=== PATIENT | male | born 1995 | race Caucasian/White ===

== ENCOUNTER 2017-07-04 16:44 | Emergency (ER) | payer OTHER ==
--- NOTE | 2017-07-04 17:12 | EDM.PDOC ---
ED HPI GENERAL MEDICAL PROBLEM - General Chief Complaint: Neck Problem Stated Complaint: SLIPPED ON ICE, LEFT SIDE OF BODY PAIN Time Seen by Provider: 07/04/17 17:06 Source of Information: Reports: Patient History Limitations: Reports: No Limitations - History of Present Illness INITIAL COMMENTS - FREE TEXT/NARRATIVE: 22-year-old male injured in the workplace this morning sent to the ED for evaluation from occupational health clinic. Patient reports he works at [employer]. 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 One of the ties fell off the pile and he got out of the forklift pick it up and to replace it worked fell from any slipped on the ice. Feet went out from underneath him and he landed directly on the back of his head ,upper back, lower back and left shoulder. The 8 foot railroad tie he was handling fell on top of them and landed on his anterior chest. Able to push this off of top of him He laid there for a while as he was dazed and knocked the wind out of him. He did not lose consciousness. Subsequently he has developed increasing headache and left sided neck pain .Left shoulder pain localized more to the acromiocalvicular joint as well as diffuse mid and low back pain. He may sustain at work. He spent his noon hour break having a nap due to the development of a severe headache. He has taken ibuprofen 600 mg this morning and again at 2:00 today. No nausea or vomiting. Current headache is about 4 out of 10. He was thus sent to the ED for further evaluation and imaging studies. Onset: Today Onset Date: 07/04/17 Onset Time: 09:30 Duration: Hour(s): Location: Reports: Head, Neck, Chest (Some mild pain across his anterior sternum where the railroad tie landed on top of him.), Back (Upper mid and lower back), Upper Extremity, Left (Left lateral shoulder) Quality: Reports: Ache, Sharp (Mostly in his left side of his neck.), Stabbing Severity: Moderate Improves with: Reports: Rest Worsens with: Reports: Movement Context: Reports: Trauma (Slipped and fell on the ice while at work this morning.) Associated Symptoms: Reports: Chest Pain, Headaches, Malaise. Denies: Confusion , Cough, cough w sputum (Mild over the manubrial sternal joint), Diaphoresis, Fever/Chills, Loss of Appetite, Nausea/Vomiting, Rash, Seizure, Shortness of Breath, Syncope, Weakness Treatments [employer]: Reports: NSAIDS (Ibuprofen 600 mg at 10:00 and again at 2:00 today.) Left Neck Pain Score (Numeric/FACES): 7 - Related Data Allergies Allergy/AdvReac Type Severity Reaction Status Date / Time No Known Allergies Allergy Verified 07/04/17 16:58 Home Meds: Home Meds Diclofenac Sodium [Voltaren] 50 mg PO TIDMEALS #24 tab.ec 07/04/17 [Rx] Past Medical History - Past Health History Medical/Surgical History: Denies Medical/Surgical History Social & Family History - Tobacco Use Smoking Status *Q: Never Smoker Second Hand Smoke Exposure: No - Caffeine Use Caffeine Use: Reports: Coffee, Energy Drinks, Soda - Recreational Drug Use Recreational Drug Use: No Review of Systems - Review of Systems Review Of Systems: See Below Constitutional: Reports: No Symptoms Eyes: Reports: No Symptoms Ears: Reports: No Symptoms Nose: Reports: No Symptoms Mouth/Throat: Reports: No Symptoms Respiratory: Reports: No Symptoms Cardiovascular: Reports: No Symptoms GI/Abdominal: Reports: No Symptoms Genitourinary: Reports: No Symptoms Musculoskeletal: Reports: Neck Pain, Shoulder Pain (Left lateral shoulder pain) , Back Pain (Mid lower and low back.), Muscle Pain (Left deltoid area of the shoulder.). Denies: Arm Pain, Hand Pain, Leg Pain, Foot Pain, Joint Pain, Joint Swelling Skin: Reports: No Symptoms Neurological: Reports: No Symptoms, Headache. Denies: Confusion, Dizziness, Numbness, Paresthesia, Pre-Existing Deficit, Seizure, Syncope, Tingling, Tremors , Trouble Speaking, Difficulty Walking, Weakness, Change in Speech Psychiatric: Reports: No Symptoms ED EXAM, GENERAL - Physical Exam Exam: See Below Exam Limited By: No Limitations General Appearance: Alert, WD/WN, Mild Distress Eye Exam: Bilateral Eye: Normal Inspection, PERRL Ear Exam: Bilateral Ear: TM normal Throat/Mouth: Normal Inspection, Normal Lips, Normal Oropharynx, Other (No injury to his tongue. No dental trauma) Head: Other (Mildly tender left occipital scalp without palpable hematoma. There is no abrasion or open wound.) Neck: Normal Inspection, Limited Range of Motion, Tender Lateral (Marked tenderness and muscle spasm present along the left lateral paraspinal muscles. This travels from the base of his scalp to thoracic one vertebra. Very tender to touch throughout the facet joints. No tenderness in the midline. Range of motion is severely limited on looking to the right and loss of 10 flexion and 10 extension.). No: Supple, Non-Tender, Full Range of Motion, Lymphadenopathy (L), Lymphadenopathy (R) Respiratory/Chest: No Respiratory Distress, Lungs Clear, Normal Breath Sounds, No Accessory Muscle Use, Chest Non-Tender, Other. No: Decreased Breath Sounds, Crackles, Rales, Rhonchi, Wheezing Cardiovascular: Normal Peripheral Pulses (Very mild tenderness on firm palpation over the manubrial sternal joint only. No evidence clinically of a fracture.), Regular Rate, Rhythm, No Edema, No Gallop, No Murmur, No Rub Peripheral Pulses: 3+: Posterior Tibial (L), Posterior Tibial (R), Dorsalis Pedis (L), Dorsalis Pedis (R) GI/Abdominal: Normal Bowel Sounds, Soft, Non-Tender, No Organomegaly, No Abnormal Bruit, No Mass, Pelvis Stable Back Exam: Vertebral Tenderness (Tender throughout the lower 6 thoracic vertebra and particularly at the thoracolumbar junction. Mild tenderness on palpation of the spinous processes and the left sided). No: CVA Tenderness (L) , CVA Tenderness (R) Extremities: Normal Inspection, Normal Range of Motion, Non-Tender, No Pedal Edema, Other (No injuries to the wrists or elbows.) Neurological: Alert, Oriented, CN II-XII Intact, Normal Cognition, Normal Gait, No Motor/Sensory Deficits Psychiatric: Normal Affect, Normal Mood Skin Exam: Warm, Dry, Intact, Normal Color, No Rash Course - Vital Signs Last Recorded V/S: Last Vital Signs Temp 36.9 C 07/04/17 16:53 Pulse 58 L 07/04/17 16:53 Resp 18 07/04/17 16:53 BP 118/64 07/04/17 16:53 Pulse Ox 97 07/04/17 16:53 - Orders/Labs/Meds Orders: Active Orders 24 hr Category Date Time Status Lumbar Spine 2 or 3V [CR] Stat Exams 07/04/17 17:11 Taken Shoulder Comp Lt [CR] Stat Exams 07/04/17 17:09 Taken Thoracic Spine 2V [CR] Stat Exams 07/04/17 17:10 Taken Labs: Laboratory Tests 07/04/17 Range/Units 17:10 Urine Color Yellow (Yellow) Urine Appearance Clear (Clear) Urine pH 6.0 (5.0-8.0) Ur Specific [place] > or = 1.030 (1.005-1.030) Urine Protein Negative (Negative) Urine Glucose (UA) Negative (Negative) Urine Ketones Negative (Negative) Urine Occult Blood Negative (Negative) Urine Nitrite Negative (Negative) Urine Bilirubin Negative (Negative) Urine Urobilinogen 0.2 (0.2-1.0) Ur Leukocyte Esterase Negative (Negative) Urine RBC Not seen (0-5) /hpf Urine WBC 0-5 (0-5) /hpf Ur Epithelial Cells 0-5 (0-5) /hpf Urine Bacteria Not seen (FEW) /hpf Urine Mucus Not seen (FEW) /hpf - Radiology Interpretation Free Text/Narrative:: 22-year-old male's seen through the ED after being injured in the workplace this morning. He reports he was alone and driving the [employer] with a pellet of 8 foot railroad ties on it. He was going to stack and on top of 2 other stacks when one of the railroad ties fell off. He got off the forklift to pick this time back up and put it where prolonged when he slipped on the ice. His feet went out from underneath him and he fell directly on his back and striking the occipital aspect of his head on the pavement. No loss of consciousness occurred but he was deathly dazed and knocked the wind out of him. The railroad tie came down across his anterior chest and he was able to push this off once he regained his weights. He did do manual work the rest of the day but minimized it. He is suffering from a headache which was quite bad this morning but improved at this time currently 4 out of 10. He has taken ibuprofen twice so far today. Since the time of injury his left neck is become increasingly painful as his left shoulder particularly over the before meals joint and deltoid musculature. Also pain has increased in his mid lower back particularly at the thoracolumbar junction and throughout the lumbar spine. Therefore imaging studies of his head neck left shoulder thoracic and lumbar spine will be carried out. I do not anticipate any fractures although his neck is of some concern is there is marked paraspinal muscle spasm on the left side. - Re-Assessments/Exams Free Text/Narrative Re-Assessment/Exam: 07/04/17 18:04 CT of the head is within normal limits showing no skull fracture no intracranial bleeding or mass effect. CT cervical spine reveals slight loss of the lordotic curve. There is no fractures or disc locations. X- ray of the left shoulder is within normal limits showing no before meals joint separation or fracture. X-ray of the thoracic spine AP and lateral is within normal limits similarly x-ray of the L-spine with AP and lateral views is normal. Patient appears to suffered multiple contusions from his fall today. 6 most serious of which is straightening of the cervical spine with marked left- sided paraspinal muscle spasm. Patient will be treated with a course of Voltaren 50 mg 3 times daily for 8 days . I suspect his neck would be much more stiff and sore over the next 24-48 hours. I will therefore write a note to excuse him from the workplace tomorrow if his neck is too painful to attend work. He would like to attend work at all possible. 07/04/17 18:10 discussed the findings of the x-rays and CTs with the patient and his mother was in the room. Various questions arose in were answered. Patient wishes to try and return to work tomorrow and apparently there are alternative work duties that he can do that do not require a lot of movement of his head or neck. I did write a note in Geoffrey's much more stiff and sore in the morning and unable to perform his work duties to excuse him if necessary. Advised follow-up with personal care provider in 10 days' time if he's not completely back to normal. May need physiotherapy Departure - Departure Time of Disposition: 18:13 Disposition: Home, Self-Care 01 Condition: Fair Clinical Impression: Sprain of cervical neck Qualifiers: Encounter type: initial encounter Qualified Code(s): S13.9XXA - Sprain of joints and ligaments of unspecified parts of neck, initial encounter Closed head injury Qualifiers: Encounter type: initial encounter Qualified Code(s): S09.90XA - Unspecified injury of head, initial encounter Contusion of shoulder, left Qualifiers: Encounter type: initial encounter Qualified Code(s): S40.012A - Contusion of left shoulder, initial encounter Contusion of lower back Qualifiers: Encounter type: initial encounter Qualified Code(s): S30.0XXA - Contusion of lower back and pelvis, initial encounter - Discharge Information Prescriptions: Diclofenac Sodium [Voltaren] 50 mg PO TIDMEALS #24 tab.ec Referrals: PCP,None [Primary Care Provider] - Forms: ED Department Discharge, ED Return to Work/School Form Additional Instructions: Evaluation in the emergency department today in regards to injuries sustained from a fall in the workplace this morning. Slip and fall on ice with blunt trauma to the back of your head and cervical strain occurred. Also contusion to the left shoulder and mid and lower back. CT scans of the head and neck are within normal limits showing no fractures or intracranial bleeding or fractures. Similarly x-rays of the left shoulder mid and lower back are negative for any fractures. You have suffered multiple contusions which means deep bruises to muscles and ligaments. Major injury will be to the neck with cervical neck strain on the left side as there is marked paraspinal muscle spasm present at the time of exam. This is likely to worsen over the next 24-48 hours as bleeding will occur into the muscle tissue causing increased stiffness and decreased range of motion. They can also aggravate headache. Treatment is ice pack to the area for one half hour out of every 4 hours today and tomorrow. After this may apply heat to the area and begin gentle range of motion exercises. Suggest use of Voltaren 50 mg 3 times daily for the next 8 days to relieve pain and inflammation. He may return to work tomorrow if you feel up to it. Otherwise I provided a note to excuse her from the workplace tomorrow if her neck is too sore to allow normal work duties. It is still safe to use Tylenol for headache if needed. If you're not completely back to normal in 10 days' time you need to follow-up with a medical provider and I would suggest a physiotherapy program be instituted for your neck injury. - My Orders Last 24 Hours: My Active Orders 07/04/17 17:09 Shoulder Comp Lt [CR] Stat 07/04/17 17:10 Thoracic Spine 2V [CR] Stat 07/04/17 17:11 Lumbar Spine 2 or 3V [CR] Stat - Assessment/Plan Last 24 Hours: My Active Orders 07/04/17 17:09 Shoulder Comp Lt [CR] Stat 07/04/17 17:10 Thoracic Spine 2V [CR] Stat 07/04/17 17:11 Lumbar Spine 2 or 3V [CR] Stat
--- NOTE | 2017-07-04 17:45 | CT ---
Head CT Technique: Multiple axial sections through the brain were obtained. Intravenous contrast was not utilized. Comparison: No previous intracranial imaging. Findings: Ventricles along with basal cisterns and sulci over the convexities are within normal limits for the patient's age. No abnormal parenchymal densities are seen. No evidence of intracranial hemorrhage. No midline shift or mass effect is seen. Bone window settings were reviewed which shows no acute calvarial abnormality. Paranasal sinuses are clear. Impression: 1. No acute intracranial abnormality is identified on noncontrast head CT exam. Diagnostic code #1
--- NOTE | 2017-07-04 17:52 | CT ---
CT cervical spine Technique: Multiple axial sections were obtained from above C1 inferiorly to the mid T1 level. Reconstructed sagittal and coronal images were reviewed. Findings: Posterior skull base is intact. Vertebral bodies heights and disc spaces are maintained. Vertebral bodies and posterior arches are intact. No bony central or bony neural foraminal stenosis is seen. No abnormal subluxation is seen on the reconstructed sagittal images. Impression: 1. Nothing acute is appreciated on CT study of the cervical spine. Diagnostic code #1
--- NOTE | 2017-07-05 07:12 | CR ---
Left shoulder: Three views of the left shoulder were obtained. Comparison: No prior study. Glenohumeral joint and acromioclavicular joint appear within normal limits. No fracture or other abnormality is appreciated. Impression: 1. No abnormality is identified on three-view left shoulder study. Diagnostic code #1
--- NOTE | 2017-07-05 07:12 | CR ---
Thoracic spine: AP, lateral and swimmer's views of the thoracic spine were obtained. Comparison: No prior study. Vertebral body heights and disc spaces are maintained. Pedicles are intact. Minimal scoliosis is noted. No subluxation or fracture is appreciated. Impression: 1. Minimal scoliosis. Nothing acute is appreciated on three-view thoracic spine study. Diagnostic code #2
--- NOTE | 2017-07-05 07:12 | CR ---
Lumbar spine: AP and lateral views of the lumbar spine were obtained. Comparison: No prior study. Vertebral body heights and disc spaces are maintained. Pedicles are intact. Visualized transverse and spinous processes are intact. No fracture or other bony abnormality is seen. Impression: 1. No abnormality is identified on two-view lumbar spine study. Diagnostic code #1
== END 2017-07-04 18:30 | disposition home or self-care (01) ==
LOC: JD.ED 16:44
DX: S13.9XXA Sprain of joints and ligaments of unspecified parts of neck, initial encounter (principal); S40.012A Contusion of left shoulder, initial encounter; S30.0XXA Contusion of lower back and pelvis, initial encounter; S09.90XA Unspecified injury of head, initial encounter; W01.118A Fall on same level from slipping, tripping and stumbling with subsequent striking against other sharp object, initial encounter; Y99.0 Civilian activity done for income or pay
CPT/HCPCS: 70450; 70450-26; 72070; 72070-26; 72100; 72100-26; 72125; 72125-26; 73030-26-LT; 73030-LT; 81001; 99284; 99284-25